=== PATIENT | male | born 1970 | race Caucasian/White ===

== ENCOUNTER 2018-05-25 20:44 | Inpatient (IN) ==
[2018-05-25] MEDS ORDERED: KETOROLAC TROMETHAMINE 15 MG/ML VIAL IV STA ×2 (21:22→23:44)
[2018-05-25] MEDS ORDERED: ONDANSETRON INJ 2 MG/ML 2 ML VIAL IV STA ×2 (21:22→23:44)
[2018-05-25] MEDS ORDERED: SODIUM CHLORIDE 0.9% 1000ML 1,000 ML IV ONE (21:22)
[2018-05-25] MEDS ORDERED: DiphenhydrAMINE HCL 50 MG/ML VIAL IV STA (21:28)
[2018-05-25 21:43] LABS: Basophils # (auto) 0.02 K/uL (0-0.2); Basophils % (auto) 0.3 %; Eosinophils # (auto) 0.02 K/uL (0-0.5); Eosinophils % (auto) 0.3 %; Hematocrit (blood only) 45.4 % (42-52); Hemoglobin 15.9 g/dL (14.0-18.0); Immature Granulocytes # (auto) 0.02 K/uL (0.00-0.02); Immature Granulocytes % (auto) 0.3 %; Lymphocytes # (auto) 0.86 K/uL (1.2-3.4); Mean Corpuscular Volume 85.3 fL (80-100); Mean Platelet Volume 10.3 fL (7.4-10.4); Monocytes # (auto) 1.28 K/uL (0.11-0.59); Monocytes % (auto) 17.8 %; Neutrophils # (auto) 4.98 K/uL (1.4-6.5); Neutrophils % (auto) 69.3 %; Platelet Count 244 K/uL (130-400); RDW Standard Deviation 40.6 fL (36.4-46.3); Red Blood Count 5.32 M/uL (4.7-6.1); White Blood Count 7.18 K/uL (4.8-10.8)
[2018-05-25 22:01] LABS: Albumin Level 3.3 gm/dl (3.4-5.0); Bilirubin Direct 0.2 mg/dl (0-0.2); Calcium 8.8 mg/dl (8.5-10.1); Creatinine Clr Calc Pharmacy 103.3 ml/min; Est GFR (African American) 102.9; Est GFR (Non-African American) 88.8; Potassium 3.8 mmol/L (3.5-5.1)
[2018-05-25 22:03] LABS: Bilirubin,Total 0.7 mg/dl (0.2-1); Total Protein 7.1 gm/dl (6.4-8.2)
--- NOTE | 2018-05-25 22:38 | XRay Report ---
XR abdomen 2V w PA chest CLINICAL HISTORY: 47 years-old Male presenting with vomiting. TECHNIQUE: PA view of the chest and supine and upright views of the abdomen were obtained. COMPARISON: 11/17/2017. FINDINGS: Cardiomediastinal silhouette normal. Lungs and pleural spaces clear. Multiple air-fluid levels in distended small bowel. There is an apparent small bowel diameter of over 5 cm likely affected by magnification. Small bowel wall thickening also suggested. Colonic gas is ev ident. No gross pneumoperitoneum. Allowing for bowel gas and stool, no calcifications to suggest nephrolithiasis. Scattered pelvic phle boliths. Osseous structures normal. IMPRESSION: 1. No acute cardiopulmonary disease. 2. Findings may suggest ileus in the setting of enteritis versus small bowel obstruction. Further ev aluation with CT is recommended. Electronically signed by: Hunter Larose M.D. 05/25/2018 10:37 PM
[2018-05-25] MEDS ORDERED: IOVERSOL 100ml IV PRN (23:04)
--- NOTE | 2018-05-26 00:09 | Emergency Department Note ---
Entered by Norm Butt acting as a scribe for [facility] History of Present Illness General Chief complaint: Vomiting Stated complaint: VOMITING DIARRHEA Time Seen by Provider: 05/25/18 21:18 Source: patient History of Present Illness Onset (ago): day(s) 3 Location: abdomen Pain Consistency: + other (persistent) Quality: + other (nausea and vomiting) Associated symptoms: + other (abdominal pain; subjective fevers) The patient is a 47 year old male who presents to the Emergency Room with complaints of persistent nausea and vomiting for the past three days. The patien t reports that he has also been experiencing generalized abdominal pain. The patient reports subjective fevers but states that he does not own a thermometer. He states that he took Motrin a few days ago but has not taken anything for pain management since that time. He denies blood in his vomit or stool. He also denies a history of surgery. Home Medications Home Medications Medication Instructions Recorded Confirmed Type No Known Home Medications 05/25/18 05/25/18 History Allergies Allergy/AdvReac Type Severity Reaction Status Date / Time acetaminophen [From Vicodin] AdvReac Intermediate Hallucinati Verified 05/25/18 21:37 ng dextromethorphan AdvReac Intermediate Hallucinati Verified 05/25/18 21:37 [From NyQuil] ng doxylamine [From NyQuil] AdvReac Intermediate Hallucinati Verified 05/25/18 21:37 ng hydrocodone [From Vicodin] AdvReac Intermediate Hallucinati Verified 05/25/18 21:37 ng pseudoephedrine [From NyQuil] AdvReac Intermediate Hallucinati Verified 05/25/18 21:37 ng Past Med/Surg History Medical History No significant past surgical history Social History Feels Safe at Home: Yes Smoking Status: Current every day smoker Review of Systems See HPI for pertinent positives & negatives. and A total of 10 systems reviewed and were otherwise negative Physical Exam Vital Signs Vital Signs - 24 hr 05/25/18 20:52 05/25/18 22:34 05/25/18 23:49 Temperature 37.1 C Temperature Source Oral Sepsis Action Taken by Nursing No Action Required Pulse Rate 96 H Pulse Rate [Finger] 74 72 Pulse Rhythm [Finger] Regular Pulse Strength [Finger] Normal Respiratory Rate 18 18 16 Respiratory Effort / Characteristics Non-Labored Non-Labored Spontaneous Non-Labored Spontaneous Respiratory Depth Normal Normal Normal Respiratory Pattern Regular Blood Pressure 138/97 Blood Pressure [Right Arm] 118/74 114/71 Blood Pressure Mean 110 Blood Pressure Mean [Right Arm] 88 85 Blood Pressure Position [Right Arm] Lying Pulse Oximetry 96 94 100 Oxygen Delivery Method Room Air Room Air Room Air GENERAL: He is oriented to person, place, and time. He appears well-developed and well-nourished. He does not appear distressed. HENT: Exam performed. Head: Normocephalic and atraumatic. Right Ear: External ear normal. No mastoid tenderness. Left Ear: External ear normal. No mastoid tenderness. Mouth/Throat: The oropharynx is clear and moist. No trismus in the jaw. No dental abscesses or uvula swelling. No oropharyngeal exudate or tonsillar abscesses. EYES: Conjunctivae and EOM are normal. Pupils are equal, round, and reactive to light. Right eye exhibits no discharge. Left eye exhibits no discharge. No scleral icterus. NECK: Normal range of motion. Neck supple. No JVD present. No spinous process tenderness present. No carotid bruit present. No rigidity. No tracheal deviation and normal range of motion present. No Brudzinski's sign and no Kernig's sign noted. CV: Normal rate, regular rhythm, normal heart sounds and intact distal pulses. There is no peripheral edema. Palpable radial pulses bue. PULM/CHEST: Effort normal and breath sounds normal. No respiratory distress. No stridor. He has no wheezes. He has no rales. Chest Wall: He exhibits no tenderness. ABD: Diffuse pain on palpation of the abdomen. MUSC/SKEL: Normal range of motion. There is no peripheral edema, tenderness or deformity. LYMPH: No cervical adenopathy. NEURO: He is alert and oriented to person, place, and time. He has normal strength. No cranial nerve deficit or sensory deficit. Coordination and gait normal. GCS eye subscore is 4. GCS verbal subscore is 5. GCS motor subscore is 6. cerbellar tests wnl. SKIN: Skin is warm and dry. He is not diaphoretic. PSYCH: He has a normal mood and affect. His behavior is normal. Judgment and thought content normal. Course 2119: Past medical records reviewed. The patient was evaluated in room A11B, and a complete history and physical examination were performed. 2245: X-ray shows multiple air-fluid levels, concerning for gastroenteritis versus SBO. CT of the abdomen will be obtained. 2345: Vital signs are stable. Labs are within normal limits. CT is showing a small bowel obstruction. I consulted Dr. Isidro [facility] Hospitalist. The patient will be reevaluated for hospitalization, and she is requesting that general surgery be made aware of the patient's case. 2353: I consulted Dr. Clark - [facility], who agreed with the plan for hospitalization and will see the patient in the morning. Consultations Consultation #1: I consulted Dr. Isidro [facility] Hospitalist. The patient will be reevaluated for hospitalization, and she is requesting that general surgery be made aware of the patient's case. Time: 23:47 Consultation #2: I consulted Dr. Clark - [facility], who agreed with the plan for hospitalization and will see the patient in the morning. Time: 23:53 Administered Medications Ioversol (Optiray 320 100ml) 100 ml IV ONCE PRN PRN Reason: Interaction Checking Stop: 05/29/18 23:03 Last Admin: 05/25/18 23:04 Dose: 93 ml Documented by: [id number] Discontinued Medications Diphenhydramine HCl (Benadryl) 25 mg IV NOW STA Stop: 05/25/18 21:29 Last Admin: 05/25/18 21:43 Dose: 25 mg Documented by: [id number] Sodium Chloride (Nss 1000ml) 1,000 mls @ 999 mls/hr IV .Q1H1M ONE Stop: 05/25/18 22:22 Last Infusion: 05/25/18 22:35 Dose: 0 mls/hr Documented by: [id number] Admin: 05/25/18 21:39 Dose: 999 mls/hr Documented by: [id number] Ketorolac Tromethamine (Toradol) 15 mg IV NOW STA Stop: 05/25/18 21:23 Last Admin: 05/25/18 21:39 Dose: 15 mg Documented by: [id number] Ondansetron HCl (Zofran) 4 mg IV NOW STA Stop: 05/25/18 21:23 Last Admin: 05/25/18 21:39 Dose: 4 mg Documented by: [id number] Medical Decision Making Medical Records Attestation: I reviewed the patient's medical records. Home Medications Current Medication List: was personally reviewed by me Laboratory Data Attestation: I reviewed the patient's lab results. Result diagrams: 05/25/18 21:35 05/25/18 21:35 Lab Results 05/25/18 05/25/18 Range/Units 21:35 21:35 WBC 7.18 (4.8-10.8) K/uL RBC 5.32 (4.7-6.1) M/uL Hgb 15.9 (14.0-18.0) g/dL Hct 45.4 (42-52) % MCV 85.3 (80-100) fL MCH 29.9 (25-34) pg MCHC 35.0 (32-36) g/dL RDW Std Deviation 40.6 (36.4-46.3) fL RDW Coeff of Janusz 13.0 (11.5-14.5) % Plt Count 244 (130-400) K/uL MPV 10.3 (7.4-10.4) fL Immature Gran % (Auto) 0.3 % Neut % (Auto) 69.3 % Lymph % (Auto) 12.0 % [place] % (Auto) 17.8 % Eos % (Auto) 0.3 % Baso % (Auto) 0.3 % Immature Gran # (Auto) 0.02 (0.00-0.02) K/uL Neut # (Auto) 4.98 (1.4-6.5) K/uL Lymph # (Auto) 0.86 L (1.2-3.4) K/uL [place] # (Auto) 1.28 H (0.11-0.59) K/uL Eos # (Auto) 0.02 (0-0.5) K/uL Baso # (Auto) 0.02 (0-0.2) K/uL Sodium 137 (136-145) mmol/L Potassium 3.8 (3.5-5.1) mmol/L Chloride 101 (98-107) mmol/L Carbon Dioxide 27 (21-32) mmol/L Anion Gap 9.0 (3-11) BUN 21 H (7-18) mg/dl Creatinine 1.01 (0.6-1.4) mg/dl Est Cr Clr Drug Dosing 103.3 ml/min Est GFR ( Amer) 102.9 Est GFR (Non-Af Amer) 88.8 BUN/Creatinine Ratio 21.0 H (10-20) Glucose 94 (70-99) mg/dl Calcium 8.8 (8.5-10.1) mg/dl Total Bilirubin 0.7 (0.2-1) mg/dl Direct Bilirubin 0.2 (0-0.2) mg/dl AST 11 L (15-37) U/L ALT 23 (12-78) U/L Alkaline Phosphatase 59 (45-117) U/L Total Protein 7.1 (6.4-8.2) gm/dl Albumin 3.3 L (3.4-5.0) gm/dl Lipase 229 (73-393) U/L Imaging Data Radiologist's Impression: Radiology results as stated below per my review and the radiologist's interpretation: CT ABDOMEN & PELVIS With Contrast: Small bowel obstruction with transition point in the right hemiabdomen. Normal appendix. Mild free fluid. Radiologist: Jonny Manzanares MD XR abdomen 2V w PA chest CLINICAL HISTORY: 47 years-old Male presenting with vomiting. TECHNIQUE: PA view of the chest and supine and upright views of the abdomen were obtained. COMPARISON: 11/17/2017. FINDINGS: Cardiomediastinal silhouette normal. Lungs and pleural spaces clear. Multiple air-fluid levels in distended small bowel. There is an apparent small bowel diameter of over 5 cm likely affected by magnification. Small bowel wall thickening also suggested. Colonic gas is evident. No gross pneumoperitoneum. Allowing for bowel gas and stool, no calcifications to suggest nephrolithiasis. Scattered pelvic phleboliths. Osseous structures normal. IMPRESSION: 1. No acute cardiopulmonary disease. 2. Findings may suggest ileus in the setting of enteritis versus small bowel obstruction. Further evaluation with CT is recommended. Electronically signed by: Hunter Larose M.D. 05/25/2018 10:37 PM Blood Pressure Blood Pressure Findings: Normal blood pressure Blood Pressure Disposition: did not require urgent referral MDM Narrative 2120: Past medical records reviewed. The patient was evaluated in room A11B, and a complete history and physical examination were performed. 2245: X-ray shows multiple air-fluid levels, concerning for gastroenteritis versus SBO. CT of the abdomen will be obtained. 2345: Vital signs are stable. Labs are within normal limits. CT is showing a small bowel obstruction. I consulted Dr. Isidro - [facility] Hospitalist. The patient will be reevaluated for hospitalization, and she is requesting that general surgery be made aware of the patient's case. 2353: I consulted Dr. Clark - General Surgery, who agreed with the plan for hospitalization and will see the patient in the morning. Impression & Plan Small bowel obstruction Discharge Plan Visit Data Chief Complaint: Vomiting Stated Complaint: VOMITING DIARRHEA ED Provider: [facility] Discharge Problem: Small bowel obstruction Patient Disposition: Being Evaluated by Hospitalist Forms Stand Alone Forms: My [facility] [employer] Prescriptions Prescriptions: No Action No Known Home Medications RF: 0 Referrals Referrals: PCP,NO [Primary Care Provider] - The scribe's documentation has been prepared under my direction and personally reviewed by me in its entirety. I confirm that the note above accurately reflects all work, treatment, procedures, and medical decision making performed by me.
--- NOTE | 2018-05-26 00:24 | History & Physical Report ---
Date of Service May 26, 2018 Assessment & Plan (1) Small bowel obstruction: Presents to ER due to intractable abdominal pain, nausea. h/o loose stools a few days ago, and a viral illness 2 weeks ago. No h/o abdominal surgeries or SBOs. Not on any medications, does not see a PCP regularly. 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 CBC unremarkable. BMP unremarkable. X-ray suggestive of SBO, CT abdomen pelvis with contrast shows small bowel obstruction with transition point in the right jelena-abdomen, normal appendix and mild free fluid. -med/surg -NPO, IVF -pain control (IV toradol q6h prn), nausea (IV zofran 4mg PRN) -gen surg c/s in AM -optimize e-lytes, follow BMP FEN/GI: NSS @ 100 ml/hr while NPO DVT ppx: SCDs CODE STATUS: FULL DISPO: med/surg History of Present Illness Chief Complaint: Abdominal pain Primary Care Provider: NO PCP Presents to ER due to intractable abdominal pain, nausea. h/o loose stools a few days ago, and a viral illness 2 weeks ago. No h/o abdominal surgeries or SBOs. Not on any medications, does not see a PCP regularly. 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 CBC unremarkable. BMP unremarkable. X-ray suggestive of SBO, CT abdomen pelvis with contrast shows small bowel obstruction with transition point in the right jelena-abdomen, normal appendix and mild free fluid. No sig PMH or SH. Social: lives with . 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 Denies T/E/D. Former smoker. Allergies Allergy/AdvReac Type Severity Reaction Status Date / Time acetaminophen [From Vicodin] AdvReac Intermediate Hallucinati Verified 05/25/18 21:37 ng dextromethorphan AdvReac Intermediate Hallucinati Verified 05/25/18 21:37 [From NyQuil] ng doxylamine [From NyQuil] AdvReac Intermediate Hallucinati Verified 05/25/18 21:37 ng hydrocodone [From Vicodin] AdvReac Intermediate Hallucinati Verified 05/25/18 21:37 ng pseudoephedrine [From NyQuil] AdvReac Intermediate Hallucinati Verified 05/25/18 21:37 ng Home Medications Home Medications Medication Instructions Recorded Confirmed Type No Known Home Medications 05/25/18 05/25/18 History Past Med/Surg History Medical History No significant past surgical history Social History Preferred Language: Albanian Communication Ability: Effective Host Coordinator Required: No Beliefs That Will Affect Care: None Current Living Situation: Spouse Other Information That Helps Us Care for You: No Feels Safe at Home: Yes Safety Concerns: Feels Safe At This Time Smoking Status: Former smoker Hx Alcohol Use: No Hx Substance Use: No Review of Systems All systems reviewed & are unremarkable except as noted in HPI & below Physical Exam Vital Signs (Past 24 Hours): Last Vital Signs Temp 37.1 C 05/25/18 20:52 Pulse 72 05/25/18 23:49 Resp 16 05/25/18 23:49 BP 114/71 05/25/18 23:49 Pulse Ox 100 05/25/18 23:49 Physical Exam: Vitals noted as above and within normal limits . GENERAL: Awake, alert to person, place, and time, nontoxic-appearing, in no distress HENT: Normocephalic, atraumatic. . Mucus membranes appear moist. EYES: Normal conjunctiva. Sclera non-icteric. EOMI. NECK: Supple. Full range of motion. No JVD RESPIRATORY: Clear to auscultation. Normal work of breathing. CARDIAC: Regular rate, normal rhythm. Extremities warm and well perfused, 2+ radial pulses bilaterally; 2+ posterior tibialis pulses bilaterally. ABDOMEN: Soft, non-distended. Mod tenderness to palpation in epigastrium. No rebound or guarding. No masses. Bowel sounds are normal. LOWER EXTREMITIES: Inspection of calves reveal equal size bilaterally. NEURO: No focal gross focal motor deficits noted. . CN II-XII grossly in tact. SKIN: Rash not present. No jaundice noted. Significant lesions not present. PSYCH: Appropriate mood and affect. Cooperative. Exam as done by Anne Martin MD, Electric Organ As[employer]er. Results & Data Laboratory Results 05/25/18 05/25/18 Range/Units 21:35 21:35 WBC 7.18 (4.8-10.8) K/uL RBC 5.32 (4.7-6.1) M/uL Hgb 15.9 (14.0-18.0) g/dL Hct 45.4 (42-52) % MCV 85.3 (80-100) fL MCH 29.9 (25-34) pg MCHC 35.0 (32-36) g/dL RDW Std Deviation 40.6 (36.4-46.3) fL RDW Coeff of Janusz 13.0 (11.5-14.5) % Plt Count 244 (130-400) K/uL MPV 10.3 (7.4-10.4) fL Immature Gran % (Auto) 0.3 % Neut % (Auto) 69.3 % Lymph % (Auto) 12.0 % [place] % (Auto) 17.8 % Eos % (Auto) 0.3 % Baso % (Auto) 0.3 % Immature Gran # (Auto) 0.02 (0.00-0.02) K/uL Neut # (Auto) 4.98 (1.4-6.5) K/uL Lymph # (Auto) 0.86 L (1.2-3.4) K/uL [place] # (Auto) 1.28 H (0.11-0.59) K/uL Eos # (Auto) 0.02 (0-0.5) K/uL Baso # (Auto) 0.02 (0-0.2) K/uL Sodium 137 (136-145) mmol/L Potassium 3.8 (3.5-5.1) mmol/L Chloride 101 (98-107) mmol/L Carbon Dioxide 27 (21-32) mmol/L Anion Gap 9.0 (3-11) BUN 21 H (7-18) mg/dl Creatinine 1.01 (0.6-1.4) mg/dl Est Cr Clr Drug Dosing 103.3 ml/min Est GFR ( Amer) 102.9 Est GFR (Non-Af Amer) 88.8 BUN/Creatinine Ratio 21.0 H (10-20) Glucose 94 (70-99) mg/dl Calcium 8.8 (8.5-10.1) mg/dl Total Bilirubin 0.7 (0.2-1) mg/dl Direct Bilirubin 0.2 (0-0.2) mg/dl AST 11 L (15-37) U/L ALT 23 (12-78) U/L Alkaline Phosphatase 59 (45-117) U/L Total Protein 7.1 (6.4-8.2) gm/dl Albumin 3.3 L (3.4-5.0) gm/dl Lipase 229 (73-393) U/L Diagnostic Findings CT abdomen pelvis with contrast shows small bowel obstruction with transition point in the right jelena-abdomen, normal appendix and mild free fluid. Supervising Physician Co-Signing Physician Notes Patient seen and examined, chart reviewed, case discussed with Dr. Martin and I agree with her assessment and plan as documented above. Briefly, patient is a 47yo male presenting with nausea, vomiting and diarrhea as well as abdominal discomfort. Found with SBO. No abdominal surgeries, no hernias, no history of GI complaints. Presently feeling comfortable, no complaints On exam he is afebrile, HD stable, nontoxic Skin: no rash HEENT: MMM, no JVD Heart: +S2/S2, regular, no m/r/g Lungs: CTA Abd: flat, mildly tender, +BS Ext: warm, well perfused, no edema Labs and images reviewed Assessment/Plan: Conservateive management for SBO. Bowel rest, IVF, electrolyte management. NPO for now. Surgical evaluaiton in AM. Pain and nausea control. Remainder of plan as above. Resident Activity Tracking Resident Involvement: Resident Care Provided Care Provided: Adult [facility] Medicine
[2018-05-26] MEDS ORDERED: KETOROLAC TROMETHAMINE 15 MG/ML VIAL IV PRN (03:07)
[2018-05-26] MEDS ORDERED: ONDANSETRON INJ 2 MG/ML 2 ML VIAL IV PRN (03:07)
[2018-05-26] MEDS: SODIUM CHLORIDE 0.9% 1000ML 1,000 ML IV SCH ×3 (03:57→23:20)
--- NOTE | 2018-05-26 07:01 | CT Scan Report ---
CT abd pelvis IV con only CLINICAL HISTORY: Diffuse abdominal pain and vomiting COMPARISON STUDY: Conventional radiographic study dated 05/25/2018 TECHNIQUE: The patient was scanned in a dynamic helical fashion during intravenous administration of 93 cc of Optiray 320. A dose lowering technique was utilized adhering to the principles of ALARA. CT DOSE: 509.61 mGy.cm FINDINGS: Lower chest: There are bibasilar atelectatic changes. Liver: The contrast-enhanced liver is normal in size, contour, and attenuation. There is no intrahepa tic biliary ductal dilatation. The hepatic veins and portal veins are patent. Gallbladder: Unremarkable. Spleen: Normal in size and attenuation. Pancreas: Unremarkable. Adrenal glands: Unremarkable. Kidneys: There is no hydronephrosis. There is a 5 mm left renal cyst. Bowel: There are mildly dilated fluid-filled small bowel loops measuring up to 5 cm in diameter. The distal ileum is of normal caliber. The findings are indicative of a small bowel obstruction. There is minimal mesenteric fluid. There is a small amount of free pelvic fluid within the pelvis. There is n o evidence of acute diverticulitis. The appendix appears normal. Peritoneum: There is no free air. There is a small amount of free pelvic fluid. Vasculature: The abdominal aorta is normal in course and caliber. Adenopathy: None. Pelvic viscera: The bladder, and pelvic viscera are unremarkable. Skeletal structures: Small bowel obstruction with a right midabdominal transition zone. Small amount of mesenteric fluid and free pelvic fluid. No evidence of pneumatosis. No evidence of free intraperit becerra air. IMPRESSION: Normal Study Electronically signed by: Ricardo Ceja M.D. 05/26/2018 6:59 AM
[2018-05-26 08:56] LABS: BUN Creatinine Ratio 23.3 (10-20); Calcium 8.2 mg/dl (8.5-10.1); Est GFR (African American) 112.2; Est GFR (Non-African American) 96.8; Phosphorus 3.1 mg/dl (2.5-4.9); Potassium 3.6 mmol/L (3.5-5.1)
--- NOTE | 2018-05-26 10:28 | Surgery Consultation ---
Date of Consultation May 26, 2018 Assessment & Plan (1) Small bowel obstruction: This patient has abdominal pain with nausea vomiting and diarrhea. I suspect that this was a severe case of gastroenteritis. The CT is indicative of a possible small bowel obstruction but considering the fact that he was having profuse diarrhea along with his nausea and vomiting this is unlikely. He is doing much better today subjectively. We did start him on sips of clear liquids and we will continue to follow. I explained to him that if he cannot tolerate the sips of clear liquids we would then may be need to reevaluate. There is no evidence of peritonitis at the present time. Present on Admission?: Yes History of Present Illness Reason for Consultation: Abdominal pain, nausea and vomiting Requesting Physician: Rachael Alicia MD Attending Physician: Rachael Alicia MD History of Present Illness I have been asked by Dr. Alicia to see this 47-year-old male who presented to the emergency room with a complaint of abdominal pain with nausea and vomiting. The pain began 3 days ago while he was at work. It was in the upper abdomen. It was sharp but also had a crampy component to it. It was located in the upper abdomen throughout. He then developed nausea and multiple episodes of vomiting. At the same time he developed profuse diarrhea. There was no hematochezia or melena with the diarrhea. He denied hematemesis. He had somewhat of an appetite and would eat but then he would vomit all of that back. He thinks he had fever intermittently but he did not take his temperature. He has never had pain like this in the past although he has had food poisoning and stated that it was never this severe. He thinks he had a viral syndrome about 2 weeks ago but is unsure as to whether or not that was food poisoning. He is continued to have bowel movements and had one since his admission. He no longer has nausea or vomiting. He states that he is hungry. At present he feels much better than he has over the last 3 days. Allergies Allergy/AdvReac Type Severity Reaction Status Date / Time acetaminophen [From Vicodin] AdvReac Intermediate Hallucinati Verified 05/25/18 21:37 ng dextromethorphan AdvReac Intermediate Hallucinati Verified 05/25/18 21:37 [From NyQuil] ng doxylamine [From NyQuil] AdvReac Intermediate Hallucinati Verified 05/25/18 21:37 ng hydrocodone [From Vicodin] AdvReac Intermediate Hallucinati Verified 05/25/18 21:37 ng pseudoephedrine [From NyQuil] AdvReac Intermediate Hallucinati Verified 05/25/18 21:37 ng Home Medications Home Medications Medication Instructions Recorded Confirmed Type No Known Home Medications 05/25/18 05/25/18 History Patient History Medical History No significant past surgical history Social History Preferred Language: [place] Communication Ability: Effective 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 Nuclear Medicine Required: No Beliefs That Will Affect Care: None Current Living Situation: Spouse Other Information That Helps Us Care for You: No Feels Safe at Home: Yes Safety Concerns: Feels Safe At This Time Smoking Status: Former smoker Hx Alcohol Use: No Hx Substance Use: No Review of Systems Abnormal review of systems as per HPI with all others normal Physical Exam Vital Signs (Past 24 Hours): Last Vital Signs Temp 36.8 C 05/26/18 07:40 Pulse 68 05/26/18 07:40 Resp 16 05/26/18 07:40 BP 113/70 05/26/18 07:40 Pulse Ox 94 05/26/18 07:40 Constitutional: well developed; no acute distress Neck: trachea midline, no thyromegaly Respiratory: normal respiratory effort, lungs clear to auscultation Cardiovascular: Rate/Rhythm: regular rate and regular rhythm Gastrointestinal (Abdomen): Inspection/Auscultation: + hypoactive bowel sounds (Normal pitch) Percussion/Palpation: + abdomen tender (Mild upper abdominal tenderness bilaterally that he stated was much better than it had been) and abdomen soft Lymphatic: no cervical lymphadenopathy Results & Data Laboratory Results 05/26/18 05/25/18 05/25/18 Range/Units 08:05 21:35 21:35 WBC 7.18 (4.8-10.8) K/uL RBC 5.32 (4.7-6.1) M/uL Hgb 15.9 (14.0-18.0) g/dL Hct 45.4 (42-52) % MCV 85.3 (80-100) fL MCH 29.9 (25-34) pg MCHC 35.0 (32-36) g/dL RDW Std Deviation 40.6 (36.4-46.3) fL RDW Coeff of Janusz 13.0 (11.5-14.5) % Plt Count 244 (130-400) K/uL MPV 10.3 (7.4-10.4) fL Immature Gran % (Auto) 0.3 % Neut % (Auto) 69.3 % Lymph % (Auto) 12.0 % [place] % (Auto) 17.8 % Eos % (Auto) 0.3 % Baso % (Auto) 0.3 % Immature Gran # (Auto) 0.02 (0.00-0.02) K/uL Neut # (Auto) 4.98 (1.4-6.5) K/uL Lymph # (Auto) 0.86 L (1.2-3.4) K/uL [place] # (Auto) 1.28 H (0.11-0.59) K/uL Eos # (Auto) 0.02 (0-0.5) K/uL Baso # (Auto) 0.02 (0-0.2) K/uL Sodium 139 137 (136-145) mmol/L Potassium 3.6 3.8 (3.5-5.1) mmol/L Chloride 105 101 (98-107) mmol/L Carbon Dioxide 25 27 (21-32) mmol/L Anion Gap 8.0 9.0 (3-11) BUN 22 H 21 H (7-18) mg/dl Creatinine 0.94 1.01 (0.6-1.4) mg/dl Est Cr Clr Drug Dosing 111.0 103.3 ml/min Est GFR ( Amer) 112.2 102.9 Est GFR (Non-Af Amer) 96.8 88.8 BUN/Creatinine Ratio 23.3 H 21.0 H (10-20) Glucose 75 94 (70-99) mg/dl Calcium 8.2 L 8.8 (8.5-10.1) mg/dl Phosphorus 3.1 (2.5-4.9) mg/dl Magnesium 2.0 (1.8-2.4) mg/dl Total Bilirubin 0.7 (0.2-1) mg/dl Direct Bilirubin 0.2 (0-0.2) mg/dl AST 11 L (15-37) U/L ALT 23 (12-78) U/L Alkaline Phosphatase 59 (45-117) U/L Total Protein 7.1 (6.4-8.2) gm/dl Albumin 3.3 L (3.4-5.0) gm/dl Lipase 229 (73-393) U/L Diagnostic Findings CT abd pelvis IV con only CLINICAL HISTORY: Diffuse abdominal pain and vomiting COMPARISON STUDY: Conventional radiographic study dated 05/25/2018 TECHNIQUE: The patient was scanned in a dynamic helical fashion during intravenous administration of 93 cc of Optiray 320. A dose lowering technique was utilized adhering to the principles of ALARA. CT DOSE: 509.61 mGy.cm FINDINGS: Lower chest: There are bibasilar atelectatic changes. Liver: The contrast-enhanced liver is normal in size, contour, and attenuation. There is no intrahepatic biliary ductal dilatation. The hepatic veins and portal veins are patent. Gallbladder: Unremarkable. Spleen: Normal in size and attenuation. Pancreas: Unremarkable. Adrenal glands: Unremarkable. Kidneys: There is no hydronephrosis. There is a 5 mm left renal cyst. Bowel: There are mildly dilated fluid-filled small bowel loops measuring up to 5 cm in diameter. The distal ileum is of normal caliber. The findings are indicative of a small bowel obstruction. There is minimal mesenteric fluid. There is a small amount of free pelvic fluid within the pelvis. There is no evidence of acute diverticulitis. The appendix appears normal. Peritoneum: There is no free air. There is a small amount of free pelvic fluid. Vasculature: The abdominal aorta is normal in course and caliber. Adenopathy: None. Pelvic viscera: The bladder, and pelvic viscera are unremarkable. Skeletal structures: Small bowel obstruction with a right midabdominal transition zone. Small amount of mesenteric fluid and free pelvic fluid. No evidence of pneumatosis. No evidence of free intraperitoneal air. IMPRESSION: Normal Study
--- NOTE | 2018-05-26 18:15 | Family Medicine Progress Note ---
Date of Service May 26, 2018 Assessment & Plan (1) Small bowel obstruction: 47 y/o M with recent h/o acute gastroenteritis presented to ED with intractable abdominal pain, nausea. X-ray suggestive of SBO, CT abdomen pelvis with contrast shows small bowel obstruction with transition point in the right jelena-abdomen, normal appendix and mild free fluid. SBO -didn't tolerate advancing diet. - continue IVF - NPO -pain control (IV toradol q6h prn), nausea (IV zofran 4mg PRN) -gen surg consulted. FEN/GI: NSS @ 100 ml/hr while NPO DVT ppx: SCDs CODE STATUS: FULL DISPO: med/surg Subjective felt hungry this am. diet advanced to clear had solids later on and felt bloated. Physical Exam Vital Signs (Past 24 Hours): Last Vital Signs Temp 37.6 C H 05/26/18 15:06 Pulse 65 05/26/18 15:06 Resp 18 05/26/18 15:06 BP 121/72 05/26/18 15:06 Pulse Ox 95 05/26/18 15:06 Constitutional: WD/WN, vitals as above Respiratory: normal respiratory effort, lungs clear to auscultation Cardiovascular: RRR, no murmur, no edema Gastrointestinal (Abdomen): normal bowel sounds, soft, nontender, no hepatosplenomegaly Results & Data Laboratory Results Laboratory Tests 05/25/18 05/26/18 21:35 08:05 WBC 7.18 Hgb 15.9 Plt Count 244 BUN 22 H Creatinine 0.94
[2018-05-26] MEDS ORDERED: KETOROLAC 30 MG/ML VIAL IV PRN (20:07)
--- NOTE | 2018-05-26 20:51 | XRay Report ---
KUB CLINICAL HISTORY: Small bowel obstruction. FINDINGS: 2 AP, portable, supine abdominal radiographs are compared to abdominal radiographs and CT d ated 05/25/2018. There is a persistent small bowel obstruction. Small bowel loops measure up to 5 cm i n diameter. Gas is noted in the colon. No evidence of intraperitoneal free air is seen on these supin e images. There are no abnormal abdominal calcifications. Phleboliths are observed in the pelvis. The bony structures appear intact. IMPRESSION: Persistent small bowel obstruction. Electronically signed by: Chema Hurt M.D. 05/26/2018 8:49 PM
[2018-05-26] MEDS ORDERED: HYDROmorphone INJ 1 MG/ML SYRINGE IV PRN (22:06)
[2018-05-26] MEDS: ACETAMINOPHEN 1,000 MG/100 ML VIAL IV SCH (22:15)
[2018-05-27 04:47] LABS: BUN Creatinine Ratio 19.2 (10-20); Creatinine Clr Calc Pharmacy 112.2 ml/min; Est GFR (African American) 113.7; Est GFR (Non-African American) 98.1; Potassium 3.5 mmol/L (3.5-5.1)
[2018-05-27] MEDS ORDERED: CHLORASEPTIC 1.4% SOLN 180 ML BTL MT PRN (05:10)
[2018-05-27] MEDS: ACETAMINOPHEN 1,000 MG/100 ML VIAL IV SCH ×3 (06:39→22:28)
[2018-05-27 07:08] LABS: Basophils # (auto) 0.03 K/uL (0-0.2); Basophils % (auto) 0.5 %; Eosinophils # (auto) 0.12 K/uL (0-0.5); Eosinophils % (auto) 2.1 %; Hematocrit (blood only) 39.7 % (42-52); Hemoglobin 13.4 g/dL (14.0-18.0); Immature Granulocytes # (auto) 0.01 K/uL (0.00-0.02); Immature Granulocytes % (auto) 0.2 %; Lymphocytes # (auto) 1.52 K/uL (1.2-3.4); Lymphocytes % (auto) 26.4 %; Mean Corpuscular Hgb Conc 33.8 g/dL (32-36); Mean Corpuscular Volume 86.7 fL (80-100); Mean Platelet Volume 10.2 fL (7.4-10.4); Monocytes # (auto) 0.73 K/uL (0.11-0.59); Monocytes % (auto) 12.7 %; Neutrophils # (auto) 3.34 K/uL (1.4-6.5); Neutrophils % (auto) 58.1 %; Platelet Count 230 K/uL (130-400); RDW Coefficient of Variation 13.2 % (11.5-14.5); RDW Standard Deviation 41.8 fL (36.4-46.3); Red Blood Count 4.58 M/uL (4.7-6.1); White Blood Count 5.75 K/uL (4.8-10.8)
[2018-05-27 07:31] LABS: Albumin Level 2.7 gm/dl (3.4-5.0); BUN Creatinine Ratio 19.9 (10-20); Creatinine Clr Calc Pharmacy 115.9 ml/min; Est GFR (African American) 118.3; Est GFR (Non-African American) 102.1; Potassium 3.5 mmol/L (3.5-5.1)
[2018-05-27 07:41] LABS: Albumin Globulin Ratio 0.9 (0.9-2); Bilirubin,Total 0.8 mg/dl (0.2-1); Globulin 3.1 gm/dl (2.5-4.0); Total Protein 5.8 gm/dl (6.4-8.2)
--- NOTE | 2018-05-27 09:20 | Surgery Progress Note ---
Date of Service May 27, 2018 Assessment & Plan (1) Small bowel obstruction: Patient's picture is unclear. Developed pain with nausea and vomiting after eating regular food last night that has now resolved after placement of an NG tube. KUB is again noted. His white blood cell count is normal and he continues to pass flatus however. We will obtain a repeat CT scan today for further evaluation and make further decisions after it has been obtained. Present on Admission?: Yes Subjective Pain returned last evening along with distention and nausea and vomiting NG tube placed has had 650 cc out of NG tube since it was placed last evening Abdominal distention has resolved Continues to pass flatus but has not had bowel movement in the last 12 hours although prior to that it had multiple liquid stools No abdominal pain at the present time Only complaint is irritation in the back of his throat from the NG tube Physical Exam Vital Signs (Past 24 Hours): Last Vital Signs Temp 36.7 C 05/27/18 08:10 Pulse 64 05/27/18 08:10 Resp 18 05/27/18 08:10 BP 134/78 05/27/18 08:10 Pulse Ox 91 05/27/18 08:10 Gastrointestinal (Abdomen): Inspection/Auscultation: abdomen not distended Percussion/Palpation: + abdomen tender (Minimal diffuse) and abdomen soft Results & Data Laboratory Results 05/27/18 05/27/18 05/27/18 Range/Units 06:33 06:33 03:54 WBC 5.75 (4.8-10.8) K/uL RBC 4.58 L (4.7-6.1) M/uL Hgb 13.4 L (14.0-18.0) g/dL Hct 39.7 L (42-52) % MCV 86.7 (80-100) fL MCH 29.3 (25-34) pg MCHC 33.8 (32-36) g/dL RDW Std Deviation 41.8 (36.4-46.3) fL RDW Coeff of Janusz 13.2 (11.5-14.5) % Plt Count 230 (130-400) K/uL MPV 10.2 (7.4-10.4) fL Immature Gran % (Auto) 0.2 % Neut % (Auto) 58.1 % Lymph % (Auto) 26.4 % [place] % (Auto) 12.7 % Eos % (Auto) 2.1 % Baso % (Auto) 0.5 % Immature Gran # (Auto) 0.01 (0.00-0.02) K/uL Neut # (Auto) 3.34 (1.4-6.5) K/uL Lymph # (Auto) 1.52 (1.2-3.4) K/uL [place] # (Auto) 0.73 H (0.11-0.59) K/uL Eos # (Auto) 0.12 (0-0.5) K/uL Baso # (Auto) 0.03 (0-0.2) K/uL Sodium 139 139 (136-145) mmol/L Potassium 3.5 3.5 (3.5-5.1) mmol/L Chloride 106 106 (98-107) mmol/L Carbon Dioxide 27 28 (21-32) mmol/L Anion Gap 6.0 5.0 (3-11) BUN 18 18 (7-18) mg/dl Creatinine 0.90 0.93 (0.6-1.4) mg/dl Est Cr Clr Drug Dosing 115.9 112.2 ml/min Est GFR ( Amer) 118.3 113.7 Est GFR (Non-Af Amer) 102.1 98.1 BUN/Creatinine Ratio 19.9 19.2 (10-20) Glucose 93 92 (70-99) mg/dl Calcium 8.0 L 8.0 L (8.5-10.1) mg/dl Total Bilirubin 0.8 (0.2-1) mg/dl AST 12 L (15-37) U/L ALT 19 (12-78) U/L Alkaline Phosphatase 45 (45-117) U/L Total Protein 5.8 L (6.4-8.2) gm/dl Albumin 2.7 L (3.4-5.0) gm/dl Globulin 3.1 (2.5-4.0) gm/dl Albumin/Globulin Ratio 0.9 (0.9-2) Diagnostic Findings KUB CLINICAL HISTORY: Small bowel obstruction. FINDINGS: 2 AP, portable, supine abdominal radiographs are compared to abdominal radiographs and CT dated 05/25/2018. There is a persistent small bowel obstruction. Small bowel loops measure up to 5 cm in diameter. Gas is noted in the colon. No evidence of intraperitoneal free air is seen on these supine images. There are no abnormal abdominal calcifications. Phleboliths are observed in the pelvis. The bony structures appear intact. IMPRESSION: Persistent small bowel obstruction.
[2018-05-27] MEDS: SODIUM CHLORIDE 0.9% 1000ML 1,000 ML IV SCH ×2 (09:43→19:55)
--- NOTE | 2018-05-27 11:50 | CT Scan Report ---
CT abd pelvis oral con only CLINICAL HISTORY: 47 years-old Male presenting with eval SBO, required NGT after diet advanced. TECHNIQUE: Multidetector CT of the abdomen and pelvis was performed after the administration of oral contrast only. IV contrast: None. One or more dose lowering techniques were used consistent with the principles of ALARA (as low as reasonably achievable), including automatic exposure control, mA or kV adjustment to individual patient size, and/or use of iterative reconstruction. COMPARISON: 05/25/2018. CT DOSE (mGy.cm): The estimated cumulative dose is 524.41 mGy.cm. 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 Lung bases: Normal heart size. Trace pleural effusions. No pericardial effusion. Minimal dependent ch anges likely atelectasis. Patchy groundglass opacity more centrally in the right lower lobe may indic ate a developing infiltrate or mosaic attenuation. Liver: Normal morphology. Density consistent with mild hepatic steatosis. Biliary: No gross biliary ductal dilatation allowing for noncontrast technique. Normal gallbladder. Pancreas: Normal noncontrast appearance. Spleen: Parenchymal calcification may indicate a history of granulomatous disease. Adrenal glands: Normal noncontrast appearance. Kidneys and ureters: Normal noncontrast appearance. No nephrolithiasis. No hydronephrosis. Normal ure ters. Bladder: Normal. Pelvic organs: Normal noncontrast appearance. Bowel: Fluid in the rectum suggests a diarrheal state. Limited diverticulosis of the sigmoid colon wi thout wall thickening or pericolic inflammatory change. The appendix is normal. Small bowel is dilate d proximally with diameter of up to 4 cm. No abnormal bowel wall thickening or pneumatosis. There is smooth tapering up stream to a normal caliber. There is also a relatively smooth transition to less d ilated distal ileum though a transition point may be present in the mid abdomen. Adhesions may be pre sent in this region. Nasogastric tube terminates approximately in the gastric body sidehole at the ga stroesophageal junction. Peritoneal cavity: Small amount of abdominal pelvic ascites as well as interloop fluid. No free intra peritoneal gas. Lymph nodes: No gross lymphadenopathy allowing for noncontrast technique. Vasculature: Atherosclerosis of the normal caliber abdominal aorta. Abdominal wall: Normal. Musculoskeletal: Degenerative changes of the spine. IMPRESSION: 1. Persistent abnormal distention of small bowel with a questionable transition point in the mid abd omen. The ambiguity of a transition point is due to a relatively smooth tapering of dilated small bow el to a normal caliber distally in unopacified mid abdominal loops. No findings to raise concern for ischemia or enteritis. A partial small bowel obstruction is favored. 2. Nasogastric tube terminates proximally in the stomach with sidehole at the GE junction; advanceme nt could be considered though the stomach is nondilated. 3. Mild hepatic steatosis. 4. Right lower lobe atelectasis versus a developing infiltrate. Electronically signed by: Hunter Larose M.D. 05/27/2018 11:48 AM
[2018-05-27] MEDS ORDERED: DiphenhydrAMINE HCL 50 MG/ML VIAL IV STA (14:03)
--- NOTE | 2018-05-27 15:32 | Family Medicine Progress Note ---
Date of Service May 27, 2018 Assessment & Plan (1) Small bowel obstruction: 47 y/o M with recent h/o acute gastroenteritis presented to ED with intractable abdominal pain, nausea. X-ray suggestive of SBO, CT abdomen pelvis with contrast shows small bowel obstruction with transition point in the right jelena-abdomen, normal appendix and mild free fluid. SBO -didn't tolerate advancing diet. - continue IVF - NPO - NG suction - surgery repeated CT scan today. plan to do conservative care for 24 hrs. if not better - surgical exploration. - pain control (IV toradol q6h prn), nausea (IV zofran 4mg PRN) FEN/GI: NSS @ 100 ml/hr while NPO DVT ppx: SCDs CODE STATUS: FULL DISPO: med/surg Subjective overnight - had NGT placed with 800ml drainage. abdominal discomfort was better with NGT placement. overall feeling exhausted. no vomiting. c/o discomfort from NGT c/o itching in face. received benadryl with improvement Respiratory: no dyspnea Cardiovascular: no chest pain Physical Exam Vital Signs (Past 24 Hours): Last Vital Signs Temp 36.7 C 05/27/18 08:10 Pulse 64 05/27/18 08:10 Resp 18 05/27/18 08:10 BP 134/78 05/27/18 08:10 Pulse Ox 91 05/27/18 08:10 Constitutional: WD/WN, vitals as above seems to be in some distress from NGT ENMT: NG tube in place Respiratory: normal respiratory effort, lungs clear to auscultation Cardiovascular: RRR, no murmur, no edema Gastrointestinal (Abdomen): normal bowel sounds, soft, nontender, no hepatosplenomegaly Psychiatric: A+Ox3, euthymic affect Results & Data Laboratory Results Laboratory Tests 05/27/18 05/27/18 06:33 06:33 WBC 5.75 Hgb 13.4 L Plt Count 230 BUN 18 Creatinine 0.90
[2018-05-28] MEDS: ACETAMINOPHEN 1,000 MG/100 ML VIAL IV SCH ×3 (05:05→21:28)
[2018-05-28 07:57] LABS: BUN Creatinine Ratio 14.6 (10-20); Calcium 7.6 mg/dl (8.5-10.1); Creatinine Clr Calc Pharmacy 122.7 ml/min; Est GFR (African American) 121.1; Est GFR (Non-African American) 104.5; Potassium 3.6 mmol/L (3.5-5.1)
--- NOTE | 2018-05-28 08:33 | XRay Report ---
KUB CLINICAL HISTORY: Small bowel obstruction. FINDINGS: 2 AP supine abdominal radiographs are compared to study dated 05/26/2018 and correlated with abdominal CT dated 05/27/2018. An enteric tube projects over the stomach. There is mild persistent ga seous distention of small bowel loops, which has significantly improved from 05/26/2018. Enteric contr ast fills the colon. No evidence of intraperitoneal free air is seen. There are no abnormal abdominal calcifications. Phleboliths are observed in the pelvis. The bony structures appear intact. IMPRESSION: 1. An enteric tube projects over the stomach. 2. There is mild gaseous distention of the small bowel loops which has significantly improved from . 3. Enteric contrast fills the colon. Electronically signed by: Chema Hurt M.D. 05/28/2018 8:31 AM
[2018-05-28] MEDS: D5NSS + 20MEQ KCL 20 MEQ/1,000 ML BAG IV SCH ×2 (11:30→19:24)
--- NOTE | 2018-05-28 12:17 | Surgery Progress Note ---
Date of Service May 28, 2018 Assessment & Plan (1) Small bowel obstruction: KUB shows contrast in colon and improved bowel gas pattern clinically doing well will d/c ngt and try clears potential d/c home tomorrow if he does well. Subjective feeling much better. multiple small bm's this AM denies pain or nausea Physical Exam Vital Signs (Past 24 Hours): Last Vital Signs Temp 36.5 C 05/28/18 07:01 Pulse 61 05/28/18 07:01 Resp 16 05/28/18 07:01 BP 137/83 05/28/18 07:01 Pulse Ox 95 05/28/18 07:01 Physical Exam: alert. nad abd: soft. nt/nd.
--- NOTE | 2018-05-28 13:22 | Family Medicine Progress Note ---
Date of Service May 28, 2018 Assessment & Plan (1) Small bowel obstruction: 47 y/o M with recent h/o acute gastroenteritis presented to ED with intractable abdominal pain, nausea. X-ray suggestive of SBO, CT abdomen pelvis with contrast shows small bowel obstruction with transition point in the right jelena-abdomen, normal appendix and mild free fluid. SBO - Had KUB - shows contrast in colon and improved bowel gas pattern - clinically doing well - d/c ngt and try clears - IVF - d/c after present bag - potential d/c home tomorrow if he does well. FEN/GI: Clears DVT ppx: SCDs CODE STATUS: FULL DISPO: med/surg Subjective slept well overnight. no new concerns. Respiratory: no dyspnea Cardiovascular: no chest pain Gastrointestinal: no abdominal pain Physical Exam Vital Signs (Past 24 Hours): Last Vital Signs Temp 36.5 C 05/28/18 07:01 Pulse 61 05/28/18 07:01 Resp 16 05/28/18 07:01 BP 137/83 05/28/18 07:01 Pulse Ox 95 05/28/18 07:01 Constitutional: WD/WN, vitals as above ENMT: NGT in place Respiratory: normal respiratory effort, lungs clear to auscultation Cardiovascular: RRR, no murmur, no edema Gastrointestinal (Abdomen): normal bowel sounds, soft, nontender, no hepatosplenomegaly Psychiatric: A+Ox3, euthymic affect
[2018-05-29] MEDS: ACETAMINOPHEN 1,000 MG/100 ML VIAL IV SCH ×2 (06:06→13:55)
--- NOTE | 2018-05-29 13:59 | Surgery Progress Note ---
Date of Service May 29, 2018 Assessment & Plan (1) Small bowel obstruction: SBO resolved advance diet ok for d/c Subjective feeling better. several more BM's since yesterday. no n/v or pain Physical Exam Vital Signs (Past 24 Hours): Last Vital Signs Temp 36.8 C 05/29/18 12:43 Pulse 53 L 05/29/18 12:43 Resp 18 05/29/18 12:43 BP 133/80 05/29/18 12:43 Pulse Ox 95 05/29/18 12:43 Physical Exam: alert. nad abd: soft. nt. nd.
--- NOTE | 2018-05-29 14:14 | Discharge Summary ---
Date of Service May 29, 2018 Admission HPI Per Admitting Provider Presents to ER due to intractable abdominal pain, nausea. h/o loose stools a few days ago, and a viral illness 2 weeks ago. No h/o abdominal surgeries or SBOs. Not on any medications, does not see a PCP regularly. 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 ED course: Vitals stable, afebrile normotensive. CBC unremarkable. BMP unremarkable. X-ray suggestive of SBO, CT abdomen pelvis with contrast shows s mall bowel obstruction with transition point in the right jelena-abdomen, normal appendix and mild free fluid. No sig PMH or SH. Social: lives with . Game [employer]. Denies T/E/D. Former smoker. Principal Diagnosis Small Bowel Obstruction Discharge Exam Constitutional WD/WN, vitals as above Respiratory normal respiratory effort, lungs clear to auscultation Cardiovascular RRR, no murmur, no edema Gastrointestinal (Abdomen) normal bowel sounds, soft, nontender, no hepatosplenomegaly Skin no rashes, warm and dry Psychiatric A+Ox3, euthymic affect Discharge Data Allergies Allergy/AdvReac Type Severity Reaction Status Date / Time acetaminophen [From Vicodin] AdvReac Intermediate Hallucinati Verified 05/25/18 21:37 ng dextromethorphan AdvReac Intermediate Hallucinati Verified 05/25/18 21:37 [From NyQuil] ng doxylamine [From NyQuil] AdvReac Intermediate Hallucinati Verified 05/25/18 21:37 ng hydrocodone [From Vicodin] AdvReac Intermediate Hallucinati Verified 05/25/18 21:37 ng pseudoephedrine [From NyQuil] AdvReac Intermediate Hallucinati Verified 05/25/18 21:37 ng Consultations 05/25/18 23:45 ED Decision to Admit Stat 05/26/18 03:07 Consult General Surgery Routine Ordered Studies 05/25/18 22:34 CT abd pelvis IV con only Urgent 05/27/18 08:59 CT abd pelvis oral con only Stat Hospital Course (1) Small bowel obstruction: 47 y/o M with recent h/o acute gastroenteritis presented to ED with intractable abdominal pain, nausea. X-ray suggestive of SBO, CT abdomen pelvis with contrast shows small bowel obstruction with transition point in the right jelena-abdomen, normal appendix and mild free fluid. SBO secondary to enteritis - Surgery consulted. - Kept on IVF and NPO. Next day diet advanced - couldn't tolerated. Made NPO again and IVF continued. Also had NGT placed. Had repeat CT abdomen scan. Monitored for 24 hrs. Diet advanced again from clears to solids and tolerated well before discharging home. Total Time Total Time Spent Total Time Spent (In Minutes): 25 Discharge Plan Discharge Items Patient Disposition: Home - Self-Care Reason For Visit: SBO Discharge Diagnosis: Small bowel obstruction secondary to Enteritis Discharge Goals: Decrease discomfort Activity: Resume your previous activity Non-emergency contact: Primary Care Provider Call non-emergency contact if: your symptoms worsen Follow-up/Referrals: Alex Dumont, DO [Primary Care Provider] - 07/05/18 12:30 pm (Please, follow up with Dr. Alex Dumont on WednesdayJuly 05 at 12:30 pm. *This was his first available appointment for a new patient. The office is located at [facility] in [place]. If you need to change this appointment, call the office at [phone].) Diet: Regular Addtl Provider Instructions: You were kept in the hospital for having some degree of small bowel obstruction likely secondary to enteritis from recent viral illness. After keeping you on IV fluids and not feeding you initially, you started to improve but since you didn't tolerated the regular diet you had nasogastric tube put in to drain the stomach liquid and you ended up having longer hospital stay. Surgeon was seeing you through the hospital course. Your diet was advanced and you tolerated it well and so being discharged home. Prescriptions: No Action No Known Home Medications RF: 0 Stand-Alone Forms: [facility] Discharge Orders: Discharge Order (Routine); Ordered 05/29/18 Ordered By: Rachael Alicia Admission Data Admit Date/Time: 05/26/18 02:22 Attending Provider: Rachael Alicia Admit Provider: Anne Martin Primary Care Provider: Alex Dumont Other Providers: Ellen Isidro Mona D Service: Surgical Services Other Interventions: Discharge Summary Assessment (RN) Last Done: 05/29/18 12:43
== END 2018-05-29 15:09 | disposition home or self-care (01) | DRG 392 ==
LOC: ED 20:44 → SUATTDRO 05-26 02:22 → 3N 05-26 02:22